=== PATIENT | female | born 1980 | race Caucasian/White ===

== ENCOUNTER → 2017-10-14 21:04 | Observation (INO) ==
[2017-10-14 18:29] LABS: Bilirubin,Urine Negative (Negative); Blood,Urine Trace (Negative); Color,Urine Yellow (Yellow); Glucose,Urine (UA) Normal (Normal); Ketones,Urine Negative (Negative); Leukocyte Esterase,Urine Negative (Negative); Nitrite,Urine Negative (Negative); Protein,Urine Negative (Neg-Trace); Specific Gravity,Urine 1.011 (1.010-1.025); Urobilinogen,Urine Normal (Normal)
[2017-10-14 18:31] LABS: Bacteria,Urine None Seen per hpf (None-Few); Hyaline Casts,Urine None Seen per lpf (None-Few); RBC,Urine 0-3 per hpf (0-3); Squamous Epithelial Cell,Urine Moderate per lpf (None-Few); WBC,Urine 0-3 per hpf (0-3)
[2017-10-14 18:33] LABS: Clarity,Urine Hazy (Clear)
[2017-10-14 18:38] LABS: Basophils % 0.4 %; Eosinophils # 0.1 K/mcL (0.0-0.6); Hematocrit 33.6 % (35.3-44.9); Hemoglobin 12.1 g/dL (11.5-15.4); Immature Granulocytes % 0.3 % (0-4); Lymphocytes # 1.7 K/mcL (0.6-4.6); Lymphocytes % 24.6 %; Mean Corpuscular Hemoglobin 33.2 pg (28.0-33.3); Mean Corpuscular Volume 92.3 fL (83.0-100.0); Mean Platelet Volume 10.5 fL (9.4-12.4); Monocytes # 0.6 K/mcL (0.0-1.3); Neutrophils # 4.5 K/mcL (1.6-8.9); Platelet Count 150 K/mcL (140-400); Red Blood Count 3.64 M/mcL (3.82-4.97); Red Cell Distribution Width 12.9 % (11.5-14.5); Segmented Neutrophils % 65.7 %
[2017-10-14 18:41] LABS: Amphetamine Screen,Urine Negative ng/mL (Cutoff=1000); Barbiturate Screen,Urine Negative ng/mL (Cutoff=200); Benzodiazepines Screen,Urine Negative ng/mL (Cutoff=200); Cannabinoid Screen,Urine Negative ng/mL (Cutoff = 50); Cocaine Screen,Urine Negative ng/mL (Cutoff= 300); Opiate Screen,Urine Negative ng/mL (Cutoff=300); Phencyclidine Screen,Urine Negative ng/mL (Cutoff=25); Protein/Creatinine Ratio,Urine 0.25 mg/mg (0.00-0.20)
[2017-10-14 18:50] LABS: Alanine Aminotransferase 17 Units/L (7-52); Aspartate Amino Transferase 19 Units/L (13-39); BUN/Creatinine Ratio 17 (6-26); Blood Urea Nitrogen 11 mg/dL (6-20); Lactate Dehydrogenase 146 Units/L (140-271); Uric Acid 5.5 mg/dL (2.3-7.6); eGFR For African Americans > 60 (> 60); eGFR For Non-African Americans > 60 (> 60)
--- NOTE | 2017-10-14 20:51 | Discharge Summary ---
Date of Encounter: 10/14/17 Time of Encounter: 20:51 - Discharge Diagnosis (1) 37 weeks gestation of Priority: Primary Status: Acute Comments: admitted for observation (2) Elevated blood pressure affecting in third trimester, antepartum Priority: Secondary Status: Acute Comments: PIH labs WNL Serial BPs monitored for [address] Thibodeaux aware of BPs and labs follow up in 3 days for NST and BP check (3) NST (non-stress test) reactive on surveillance Priority: Secondary Status: Acute Comments: 125 bpm moderate amount of variability +15x15 accels no decels noted. - Discharge Medications Home Medications: Vit #108/Iron/FA [ One Tablet] 1 each PO DAILY 10/14/17 [ History] Allergies/Adverse Reactions: 3 Allergy/AdvReac Type Severity Reaction Status Date / Time No Known Allergies Allergy Verified 10/14/17 17:42 Data Procedures and tests throughout hospitalization: Laboratory Tests 10/14/17 10/14/17 10/14/17 18:05 18:05 18:05 WBC 6.8 RBC 3.64 L Hgb 12.1 Hct 33.6 L MCV 92.3 MCH 33.2 MCHC 36.0 H RDW 12.9 Plt Count 150 MPV 10.5 Immature Gran % 0.3 Seg Neutrophils % 65.7 Lymphocytes % 24.6 Monocytes % 8.0 Eosinophils % 1.0 Basophils % 0.4 Neutrophils # 4.5 Lymphocytes # 1.7 Monocytes # 0.6 Eosinophils # 0.1 Basophils # 0.0 BUN Creatinine Est GFR ( Amer) Est GFR (Non-Af Amer) BUN/Creatinine Ratio Uric Acid AST ALT Lactate Dehydrogenase Urine Color Yellow Urine Clarity Hazy A Urine pH 6.0 Ur Specific [place] 1.011 Urine Protein Negative Urine Glucose (UA) Normal Urine Ketones Negative Urine Blood Trace H Urine Nitrite Negative Urine Bilirubin Negative Urine Urobilinogen Normal Ur Leukocyte Esterase Negative Urine Microscopic RBC 0-3 Urine Microscopic WBC 0-3 Ur Squamous Epith Cells Moderate H Urine Bacteria None Seen Hyaline Casts None Seen Ur Culture Indicated? NO Urine Creatinine Protein/Creatinin Ratio Urine Total Protein Urine Opiates Screen Negative Ur Barbiturates Screen Negative Ur Phencyclidine Scrn Negative Ur Amphetamines Screen Negative U Benzodiazepines Scrn Negative Urine Cocaine Screen Negative U Marijuana (THC) Screen Negative 05/22/18 05/22/18 18:05 18:05 WBC RBC Hgb Hct MCV MCH MCHC RDW Plt Count MPV Immature Gran % Seg Neutrophils % Lymphocytes % Monocytes % Eosinophils % Basophils % Neutrophils # Lymphocytes # Monocytes # Eosinophils # Basophils # BUN 11 Creatinine 0.63 Est GFR ( Amer) > 60 Est GFR (Non-Af Amer) > 60 BUN/Creatinine Ratio 17 Uric Acid 5.5 AST 19 ALT 17 Lactate Dehydrogenase 146 Urine Color Urine Clarity Urine pH Ur Specific [place] Urine Protein Urine Glucose (UA) Urine Ketones Urine Blood Urine Nitrite Urine Bilirubin Urine Urobilinogen Ur Leukocyte Esterase Urine Microscopic RBC Urine Microscopic WBC Ur Squamous Epith Cells Urine Bacteria Hyaline Casts Ur Culture Indicated? Urine Creatinine 20 Protein/Creatinin Ratio 0.25 H Urine Total Protein 5 Urine Opiates Screen Ur Barbiturates Screen Ur Phencyclidine Scrn Ur Amphetamines Screen U Benzodiazepines Scrn Urine Cocaine Screen U Marijuana (THC) Screen Labs on day of discharge: Labs from last 24 hours 10/14/17 10/14/17 10/14/17 18:05 18:05 18:05 WBC 6.8 RBC 3.64 L Hgb 12.1 Hct 33.6 L MCV 92.3 MCH 33.2 MCHC 36.0 H RDW 12.9 Plt Count 150 MPV 10.5 Immature Gran % 0.3 Seg Neutrophils % 65.7 Lymphocytes % 24.6 Monocytes % 8.0 Eosinophils % 1.0 Basophils % 0.4 Neutrophils # 4.5 Lymphocytes # 1.7 Monocytes # 0.6 Eosinophils # 0.1 Basophils # 0.0 BUN 11 Creatinine 0.63 Est GFR ( Amer) > 60 Est GFR (Non-Af Amer) > 60 BUN/Creatinine Ratio 17 Uric Acid 5.5 AST 19 ALT 17 Lactate Dehydrogenase 146 Urine Color Urine Clarity Urine pH Ur Specific [place] Urine Protein Urine Glucose (UA) Urine Ketones Urine Blood Urine Nitrite Urine Bilirubin Urine Urobilinogen Ur Leukocyte Esterase Urine Microscopic RBC Urine Microscopic WBC Ur Squamous Epith Cells Urine Bacteria Hyaline Casts Ur Culture Indicated? Urine Creatinine 20 Protein/Creatinin Ratio 0.25 H Urine Total Protein 5 Urine Opiates Screen Ur Barbiturates Screen Ur Phencyclidine Scrn Ur Amphetamines Screen U Benzodiazepines Scrn Urine Cocaine Screen U Marijuana (THC) Screen 10/14/17 10/14/17 18:05 18:05 WBC RBC Hgb Hct MCV MCH MCHC RDW Plt Count MPV Immature Gran % Seg Neutrophils % Lymphocytes % Monocytes % Eosinophils % Basophils % Neutrophils # Lymphocytes # Monocytes # Eosinophils # Basophils # BUN Creatinine Est GFR ( Amer) Est GFR (Non-Af Amer) BUN/Creatinine Ratio Uric Acid AST ALT Lactate Dehydrogenase Urine Color Yellow Urine Clarity Hazy A Urine pH 6.0 Ur Specific [place] 1.011 Urine Protein Negative Urine Glucose (UA) Normal Urine Ketones Negative Urine Blood Trace H Urine Nitrite Negative Urine Bilirubin Negative Urine Urobilinogen Normal Ur Leukocyte Esterase Negative Urine Microscopic RBC 0-3 Urine Microscopic WBC 0-3 Ur Squamous Epith Cells Moderate H Urine Bacteria None Seen Hyaline Casts None Seen Ur Culture Indicated? NO Urine Creatinine Protein/Creatinin Ratio Urine Total Protein Urine Opiates Screen Negative Ur Barbiturates Screen Negative Ur Phencyclidine Scrn Negative Ur Amphetamines Screen Negative U Benzodiazepines Scrn Negative Urine Cocaine Screen Negative U Marijuana (THC) Screen Negative Date of admission: 10/14/17 17:34 Discharging clinician: Johnna Houston Anticipated date of discharge: 10/14/17 - Patient Status Disposition: Home, Self-Care Condition: Good Functional capacity at discharge: independent ambulation - Discharge Instructions Follow Up With: Dre Thibodeaux MD [Partnered Physician] - - Diet and Activity Activity: increase activity as tolerated Diet: regular diet 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 Patient denies headache, visual disturbances, epigastric pain, contractions, LOF or VB. Patient reports +FM. Time Attestation: Total time spent providing and/or coordinating discharge services: Time Spent: Less than 30 minutes Exam - Constitutional General appearance IM: A&O X 3, pleasant, answers questions appropriately - Respiratory Respiratory exam: Present: CTAB - Cardiovascular Cardiovascular exam IM: Present: RRR, +S1, +S2 - GI/Abdominal GI/Abdominal exam IM: normal bowel sounds - Extremities Exam Extremities exam IM: Present: full ROM, normal capillary refill, pedal edema (1+ ) - Neurological Exam Neurological exam: oriented X3, reflexes normal - Other Additional findings: 125 bpm moderate variability +15x15 accels no decels noted. Cat. 1 tracing irregular contractions noted. - VTE Reasons for not Prescribing Prophylaxis: Treatment not Indicated - Low risk for VTE
== END | disposition home or self-care (01) ==
LOC: 1NENULAB
PROVIDERS: ADMIT Student in an Organized Health Care Education/Training Program; ATTEND Student in an Organized Health Care Education/Training Program

== ENCOUNTER 2017-10-17 11:34 | Inpatient (IN) ==
[2017-10-17] MEDS ORDERED: Naloxone 0.4 MG/ML INJ IVP PRN (11:53)
[2017-10-17] MEDS ORDERED: Ondansetron 4 MG/2 ML VIAL IVP PRN (11:53)
[2017-10-17] MEDS ORDERED: Famotidine 20 MG/2 ML VIAL IVP PRN (11:53)
[2017-10-17] MEDS ORDERED: *HR* Nalbuphine 10 MG/ML AMPUL IVP PRN (11:53)
[2017-10-17] MEDS ORDERED: Ringers Solution, Lactated 1,000 ML IVC SCH (12:00)
--- NOTE | 2017-10-17 12:06 | OB/GYN History & Physical ---
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 Muller is a 37 year old female at 37w6d presents to labor and delivery from OB office for IOL for PIH. Patient was seen in office for NST and BP check. BP was 142/90. Patient had elevated BPs earlier in the week as well. Due to BPs Dr. Thibodeaux sent patient for IOL. Patient reports +FM, denies contractions , headache or epigastric pain. Patient does report some visual disturbances. Blood type: A+ Rubella:Immune Hep B: Nonreactive GBS: Negative Past Med Surg Social Fam HX - Past Medical History Source: patient Medical history: no medical history Psychiatric history: no psych history - Past Surgical History Surgical History: other (wisdom teeth) - Social History Smoking Status: Never smoker Smokeless Tobacco Status: No Alcohol use: none Drug use: none Occupational status: employed Current living situation: Home - Independent Activity Level: Independent ambulation Recent Out of Country Travel Within the Last 8 Weeks: No Exposure or Possible Exposure to Illness During Travel: No - Family History Mother Living Status: Still Living Hx Family Cardiac Disorders: Yes (HTN) Obstetrical History - Pregnancies : 3 Para: 2 Term: 2 : 0 Ab's: 0 Livin Medications and Allergies Vit #108/Iron/FA [ One Tablet] 1 each PO DAILY 10/14/17 [ History] 3 Allergy/AdvReac Type Severity Reaction Status Date / Time No Known Allergies Allergy Verified 10/14/17 17:42 Review of System OB - Constitutional Constitutional ROS IM: no fever(s), no headache(s) - Cardiovascular Cardiovascular: no chest pain, no palpitations, no rapid heart rate, no syncope - Respiratory Respiratory: no cough - Gastrointestinal Gastrointestinal: no abdominal pain, no diarrhea, no heartburn, no nausea, no vomiting - Genitourinary Genitourinary: no abnormal vaginal bleeding, no dysuria, no flank pain, no urinary urgency, no vaginal discharge, no vaginal odor, no vaginal pruritis Exam - Constitutional Constitutional: well developed, well nourished, no acute distress, average body habitus - HEENT HEENT: Normocephaly, Mucus Membranes Moist - Neck Neck exam: full ROM, supple - Lungs Respiratory exam: CTAB - Cardiovascular Cardiovascular exam: RRR, +S1, +S2 - Abdomen Abdomen: Present: bowel sounds normal, gravid, non tender - Extremities Extremities exam: full ROM, normal capillary refill, pedal edema (1+ bilateral) Deep Tendon Reflex Grade: 2+ Normal - Cervix Dilation: 4 (per Dr. Thibodeaux in office) Effacement: 80 Station: -1 - Uterus Uterus exam: Present: normal size, normal contour - Comments Comments: FHR 135 bpm moderate variability +15x15 accels no decels noted. Cat. 1 tracing. No contractions Results All other labs normal. - VTE Reasons for not Prescribing Prophylaxis: Treatment not Indicated - Low risk for VTE
[2017-10-17] MEDS ORDERED: miSOPROStol 100 MCG TABLET PO ONE (12:30)
[2017-10-17 13:14] LABS: Basophils % 0.5 %; Eosinophils # 0.1 K/mcL (0.0-0.6); Eosinophils % 1.3 %; Hematocrit 33.4 % (35.3-44.9); Hemoglobin 12.2 g/dL (11.5-15.4); Immature Granulocytes % 0.5 % (0-4); Lymphocytes # 1.2 K/mcL (0.6-4.6); Lymphocytes % 19.5 %; Mean Corpuscular HGB Conc 36.5 g/dL (31.6-35.5); Mean Corpuscular Hemoglobin 33.6 pg (28.0-33.3); Mean Platelet Volume 10.7 fL (9.4-12.4); Monocytes # 0.4 K/mcL (0.0-1.3); Monocytes % 6.3 %; Neutrophils # 4.5 K/mcL (1.6-8.9); Platelet Count 137 K/mcL (140-400); Red Blood Count 3.63 M/mcL (3.82-4.97); Red Cell Distribution Width 12.8 % (11.5-14.5); Segmented Neutrophils % 71.9 %
[2017-10-17 13:21] LABS: Amphetamine Screen,Urine Negative ng/mL (Cutoff=1000); Barbiturate Screen,Urine Negative ng/mL (Cutoff=200); Benzodiazepines Screen,Urine Negative ng/mL (Cutoff=200); Cannabinoid Screen,Urine Negative ng/mL (Cutoff = 50); Cocaine Screen,Urine Negative ng/mL (Cutoff= 300); Creatinine,Urine 43 mg/dL; Opiate Screen,Urine Negative ng/mL (Cutoff=300); Phencyclidine Screen,Urine Negative ng/mL (Cutoff=25); Protein/Creatinine Ratio,Urine 0.23 mg/mg (0.00-0.20)
[2017-10-17 13:28] LABS: Alanine Aminotransferase 15 Units/L (7-52); Aspartate Amino Transferase 18 Units/L (13-39); BUN/Creatinine Ratio 17 (6-26); Blood Urea Nitrogen 11 mg/dL (6-20); Lactate Dehydrogenase 151 Units/L (140-271); Uric Acid 5.5 mg/dL (2.3-7.6); eGFR For African Americans > 60 (> 60); eGFR For Non-African Americans > 60 (> 60)
--- NOTE | 2017-10-17 14:10 | Anesthesia Evaluation PreOp ---
Date of Encounter: 10/17/17 Time of Encounter: 14:07 - Past History Planned Operation: karlo Cardiac History: HTN (PIH) Pulmonary History: Denies Any Significant HX ASIC ENGINEER History: Denies Any Significant HX Other Medical History: GERD Anesthesia History: No Prior Anesthetic Complications, Past Anesthesia (karlo x2) : Yes Test: Positive Alcohol Use: none Drug use: none Medications and Allergies Vit #108/Iron/FA [ One Tablet] 1 each PO DAILY 10/14/17 [ History] 3 Allergy/AdvReac Type Severity Reaction Status Date / Time No Known Allergies Allergy Verified 10/14/17 17:42 - Meds/Allergy Pre-op Review Medications Reviewed: Yes Allergies Reviewed: Yes Beta Blockers on Current Med List: No Anesthesia Results - Labs 10/17/17 11:55 10/17/17 11:55 Anesthesia Exam 141/100 76 16 fht 124 Height: 5'5" Weight: 88 k NPO (# of Hours): 3 Pain Scale: 3 Pain Scale Used: Numeric (1 - 10) - HEENT Pupil (Motor): Pupils equal Mallampati: II Teeth: Normal Oral Opening: Greater than 3 - ASIC ENGINEER LOC: Oriented ASIC ENGINEER Motor: Normal RUE, Normal LUE, Normal RLE, Normal LLE, Normal Face ASIC ENGINEER Sensory: Normal: RUE, LUE, RLE, LLE, Face - Cardiac Rhythm: Regular Murmur: None - Pulmonary Breath Sounds: bilateral Clear Respiratory Effort: Symmetrical Anesthesia Assess/Plan ASA Score: 2 Modified Brittany Scale for Level of Consciousness: Cooperative, oriented, and tranquil Anesthetic Plan: Regional Autologous Blood: No Monitoring Plan: Standard Monitors Recovery Plan: Other (risks discussed, questions answered, consented)
[2017-10-17] MEDS ORDERED: *HR* FentaNYL (PF) 100 MCG/2 ML VIAL EP ONE (14:11)
[2017-10-17] MEDS ORDERED: *HR* Ropivacaine/PF 0.2% 20 ML VIAL EP ONE (14:11)
[2017-10-17] MEDS ORDERED: Epidural Premix (fent/bupiv) 110 ML EP SCH (14:15)
--- NOTE | 2017-10-17 15:29 | OB Labor Progress Note ---
Date of Encounter: 10/17/17 Time of Encounter: 15:27 Labor Progress Note - Subjective Subjective: Patient doing well. Patient denies any pain at this time. Discussed POC with patient. Patient denies any questions or concerns. - Cervix Cervix: 5/70/-1 - Heart Tones Heart Tones: 135 bpm moderate variability + 15x15 accels no decels noted. CAt. 1 tracing. - Paw Paw Paw Paw: 3-5 min apart - Interventions Interventions: SVE, AROM moderate amount of clear fluid. Patient tolerated well. - Plan Plan: Continue labor management anticipate
[2017-10-17] MEDS ORDERED: Epidural Premix (fent/bupiv) 110 ML EP ONE (16:30)
--- NOTE | 2017-10-17 16:57 | Anesthesia Procedures ---
Date of Encounter: 10/17/17 Time of Encounter: 16:54 Procedures: Anesthesia - Epidural/Spinal OB Eval: Gestational age: 37.6 OB Eval: : 3 OB Eval: Hx Para: 2 OB Eval: Dilated at (cm): 5 OB Eval: Contractions: Non-stressed pattern Consent Obtained: Yes Supplemental Oxygen: None/Room Air Site Prep: Aseptic Technique Patient position: upright Local Anesthetic: Lidocaine 1% Amount of Local Anesthetic used: 3 Touhy Needle Gauge: 18 Touhy Needle Depth (cm): 5 Catheter Depth at Skin (cm): 15 Test Dose (1.5% Lido + Epi): Volume given (mls): 3 Test Dose Result: Negative Loading Dose: Fentanyl (mcg): 100 Loading Dose: Other: rop 0.2% 10cc Loading Dose Administered: Thru Touhy Needle Infusion Med: 0.125% Bupivacaine w/ 2 mcg/ml Fentanyl (pcea) Infusion Rate (mls/hr): 15 (pcea 5 cc q 30") Catheter Secured in Place: Tegaderm Interspace Used: L2-L3 Loss of Resistance (KARISSA): Yes Blood: No CSF: No Paresthesia: No Procedure: aseptic, tolerated well, VSS, effective Vitals + FHT's: 143/87 88 16 fht 133
[2017-10-17] MEDS ORDERED: Oxytocin 20 units/ LR 1000 mL 20 UNIT/1,000 ML BAG IVC ONE ×2 (17:25→21:54)
[2017-10-17] MEDS ORDERED: Lidocaine -MPF 1% 2 ML VIAL ID ONE (19:31)
--- NOTE | 2017-10-17 20:43 | OB/GYN Procedure Note ---
Delivery - Delivery Date: 10/17/17 Provider: Johnna Houston Intrapartum events: none Delivery induction: AROM, misoprostol Delivery monitor: external FHT, external uterine Anesthesia: epidural Quantitated Blood Loss: 200 - Infant (s) Infant A Infant Delivery Date: 10/17/17 Infant Delivery Time: 20:11 Presentation: vertex Position: CHRISTOS Route of delivery: Gender: Male Viability: Viable Pounds: 7 Ounces: 0 Weight Gram: 3185 kg at 1 minute: 8 at 5 mins: 9 Shoulder Dystocia: not encountered Placenta: spontaneous, uterine exploration Cord: 3 umbilical vessels - Repair Episiotomy: none Laceration Description: Perineal - 1st Degree (repaired with 3-0 vicryl ) - Complications Delivery complications: none - Disposition Mom disposition: stable in LDR [place] disposition: stable in LDR - Comments Comments: Called to LDR patient complete and feeling pressure. Patient placed in foot plates and prepped for delivery. Under maternal effort patient spontaneously delivered a viable male infant over a 1st degree laceration. No nuchal cord, shoulder dystocia or meconium was encountered. was placed on maternal abdomen. Cord was clamped and cut after pulsations ceased. A 1st degree laceration was repaired with 3-0 vicryl. Placenta delivered spontaneously and intact. Pericare provided. All counts correct. Both Mother and infant stable in LDR for 2 hour recovery.
[2017-10-17] MEDS ORDERED: *HR* HYDROcodone/Acet 5/325 mg TABLET PO PRN (22:08)
[2017-10-17] MEDS ORDERED: Acetaminophen 325 MG TABLET PO PRN (22:08)
[2017-10-17] MEDS ORDERED: Lanolin 7 G OINT...G. TP PRN (22:08)
[2017-10-17] MEDS ORDERED: Benzocaine/Menthol 56 GM AEROSOL SPRAY TP PRN (22:08)
[2017-10-17] MEDS ORDERED: Oxytocin 20 units/ LR 1000 mL 20 UNIT/1,000 ML BAG IVC SCH (22:08)
[2017-10-18 07:50] LABS: Alanine Aminotransferase 13 Units/L (7-52); Aspartate Amino Transferase 22 Units/L (13-39); BUN/Creatinine Ratio 15 (6-26); Blood Urea Nitrogen 8 mg/dL (6-20); Lactate Dehydrogenase 171 Units/L (140-271); Uric Acid 5.6 mg/dL (2.3-7.6); eGFR For African Americans > 60 (> 60); eGFR For Non-African Americans > 60 (> 60)
[2017-10-18 07:55] LABS: Basophils % 0.4 %; Eosinophils # 0.1 K/mcL (0.0-0.6); Eosinophils % 1.1 %; Hematocrit 34.6 % (35.3-44.9); Hemoglobin 12.1 g/dL (11.5-15.4); Immature Granulocytes % 0.2 % (0-4); Lymphocytes # 1.7 K/mcL (0.6-4.6); Lymphocytes % 19.8 %; Mean Corpuscular Hemoglobin 32.5 pg (28.0-33.3); Mean Platelet Volume 10.6 fL (9.4-12.4); Monocytes # 0.6 K/mcL (0.0-1.3); Monocytes % 6.6 %; Platelet Count 130 K/mcL (140-400); Red Blood Count 3.72 M/mcL (3.82-4.97); Red Cell Distribution Width 12.9 % (11.5-14.5); Segmented Neutrophils % 71.9 %
[2017-10-18] MEDS: Prenatal Vit/FA 1 EACH TABLET PO SCH (08:29)
--- NOTE | 2017-10-18 10:56 | OB/GYN Progress Note ---
Date of Encounter: 10/18/17 Time of Encounter: 10:53 - Assessment and Plan (1) Vaginal delivery Current Visit: Yes Status: Acute Continue routine care Ice to perineum when necessary Dermoplast to perineum when necessary consult Anticipate discharge home tomorrow (2) Breast feeding status of mother Current Visit: Yes Status: Acute when necessary Subjective - Subjective Principal diagnosis: s/p Interval history: Feeling well. Out of bed without dizziness. Positive perineal discomfort- using ice pack. Recommended to add-on dermoplast spray as well as witch phill pads. Cramping minimal, using ibuprofen. Breast-feeding every 2-3 hours. Some nipple soreness. Voiding without difficulty. Passing flatus, no BM yet. Tolerating regular diet. Patient reports: appetite normal, voiding normally, pain well controlled, ambulating normally : doing well, nursing well Objective - Latest Vital Signs Latest vital signs: Vital Signs Temp Pulse Resp BP Pulse Ox 10/18/17 08:38 98.3 F 93 16 121/80 10/18/17 01:17 98.5 F 92 16 123/82 97 10/18/17 00:10 97.8 F 86 16 137/85 99 10/17/17 23:10 98.2 F 87 16 140/89 98 Intake and Output 10/17/17 10/18/17 10/18/17 23:59 07:59 15:59 Intake Total 0 / 0 1000 / 1000 Output Total 1500 / 1500 2500 / 2500 750 / 750 Balance -1500 / -1500 -1500 / -1500 -750 / -750 Intake: Oral 0 / 0 1000 / 1000 Output: Urine 500 / 500 2500 / 2500 750 / 750 Catheter 1000 / 1000 Other: Weight 87.4 kg Patient Weight 10/18/17 23:59 Weight 87.4 kg - Exam Lungs: bilateral: normal Chest: Normal S1, Normal S2 Extremities: Present: normal, edema Abdomen: Present: normal appearance, soft Uterus: Present: normal, firm Uterus Position: 1 Finger Below Umbilicus, Midline Comments: Breasts: Nipples intact without erythema; breasts soft, nontender. - Labs Labs: Laboratory Results - last 24 hr 10/17/17 10/17/17 10/17/17 11:55 11:55 12:35 WBC 6.2 RBC 3.63 L Hgb 12.2 Hct 33.4 L MCV 92.0 MCH 33.6 H MCHC 36.5 H RDW 12.8 Plt Count 137 L MPV 10.7 Immature Gran % 0.5 Seg Neutrophils % 71.9 Lymphocytes % 19.5 Monocytes % 6.3 Eosinophils % 1.3 Basophils % 0.5 Neutrophils # 4.5 Lymphocytes # 1.2 Monocytes # 0.4 Eosinophils # 0.1 Basophils # 0.0 BUN 11 Creatinine 0.64 Est GFR ( Amer) > 60 Est GFR (Non-Af Amer) > 60 BUN/Creatinine Ratio 17 Uric Acid 5.5 AST 18 ALT 15 Lactate Dehydrogenase 151 Urine Creatinine Protein/Creatinin Ratio Urine Total Protein Urine Opiates Screen Ur Barbiturates Screen Ur Phencyclidine Scrn Ur Amphetamines Screen U Benzodiazepines Scrn Urine Cocaine Screen U Marijuana (THC) Screen Blood Type A POSITIVE Antibody Screen NEGATIVE 10/17/17 10/18/17 10/18/17 12:55 07:00 07:00 WBC 8.4 RBC 3.72 L Hgb 12.1 Hct 34.6 L MCV 93.0 MCH 32.5 MCHC 35.0 RDW 12.9 Plt Count 130 L MPV 10.6 Immature Gran % 0.2 Seg Neutrophils % 71.9 Lymphocytes % 19.8 Monocytes % 6.6 Eosinophils % 1.1 Basophils % 0.4 Neutrophils # 6.0 Lymphocytes # 1.7 Monocytes # 0.6 Eosinophils # 0.1 Basophils # 0.0 BUN 8 Creatinine 0.54 L Est GFR ( Amer) > 60 Est GFR (Non-Af Amer) > 60 BUN/Creatinine Ratio 15 Uric Acid 5.6 AST 22 ALT 13 Lactate Dehydrogenase 171 Urine Creatinine 43 Protein/Creatinin Ratio 0.23 H Urine Total Protein 10 Urine Opiates Screen Negative Ur Barbiturates Screen Negative Ur Phencyclidine Scrn Negative Ur Amphetamines Screen Negative U Benzodiazepines Scrn Negative Urine Cocaine Screen Negative U Marijuana (THC) Screen Negative Blood Type Antibody Screen
[2017-10-18] MEDS: Ibuprofen 600 MG TABLET PO PRN ×2 (11:04→16:44)
[2017-10-19] MEDS: Prenatal Vit/FA 1 EACH TABLET PO SCH (07:36)
[2017-10-19 09:03] VITALS: BP 137/85
[2017-10-19] MEDS: Ibuprofen 600 MG TABLET PO PRN (10:09)
--- NOTE | 2017-10-19 11:02 | Discharge Summary ---
Date of Encounter: 10/19/17 Time of Encounter: 10:59 - Discharge Diagnosis (1) Vaginal delivery Priority: Primary Status: Acute Comments: Pain well controlled with by mouth pain meds Tolerating regular diet Voiding independently Passing flatus, but no BM yet Ambulating independently Lochia light Discharge home today (2) Breast feeding status of mother Priority: Secondary Status: Acute Comments: when necessary - Discharge Medications Prescriptions: Ibuprofen [Motrin] 600 mg PO Q6HR PRN #30 tablet PRN Reason: Cramping Docusate [Colace] 100 mg PO BID #30 capsule Home Medications: Vit #108/Iron/FA [ One Tablet] 1 each PO DAILY 10/14/17 [ History] Benzocaine/Menthol [place] [Dermoplast [place]] 1 appl TP QID PRN aerosol 10/19/17 [Rx] Docusate [Colace] 100 mg PO BID #30 capsule 10/19/17 [Rx] Hydrocortisone 1% CREAM [Cortaid] 1 appl TP BID PRN bottle 10/19/17 [Rx] Ibuprofen [Motrin] 600 mg PO Q6HR PRN #30 tablet 10/19/17 [Rx] Lanolin [Lansinoh] 1 appl TP TID PRN oint...g. 10/19/17 [Rx] Allergies/Adverse Reactions: 3 Allergy/AdvReac Type Severity Reaction Status Date / Time No Known Allergies Allergy Verified 10/14/17 17:42 Data Procedures and tests throughout hospitalization: Laboratory Tests 10/17/17 10/17/17 10/17/17 11:55 11:55 12:35 WBC 6.2 RBC 3.63 L Hgb 12.2 Hct 33.4 L MCV 92.0 MCH 33.6 H MCHC 36.5 H RDW 12.8 Plt Count 137 L MPV 10.7 Immature Gran % 0.5 Seg Neutrophils % 71.9 Lymphocytes % 19.5 Monocytes % 6.3 Eosinophils % 1.3 Basophils % 0.5 Neutrophils # 4.5 Lymphocytes # 1.2 Monocytes # 0.4 Eosinophils # 0.1 Basophils # 0.0 BUN 11 Creatinine 0.64 Est GFR ( Amer) > 60 Est GFR (Non-Af Amer) > 60 BUN/Creatinine Ratio 17 Uric Acid 5.5 AST 18 ALT 15 Lactate Dehydrogenase 151 Urine Creatinine Protein/Creatinin Ratio Urine Total Protein Urine Opiates Screen Ur Barbiturates Screen Ur Phencyclidine Scrn Ur Amphetamines Screen U Benzodiazepines Scrn Urine Cocaine Screen U Marijuana (THC) Screen Blood Type A POSITIVE Antibody Screen NEGATIVE 10/17/17 10/18/17 10/18/17 12:55 07:00 07:00 WBC 8.4 RBC 3.72 L Hgb 12.1 Hct 34.6 L MCV 93.0 MCH 32.5 MCHC 35.0 RDW 12.9 Plt Count 130 L MPV 10.6 Immature Gran % 0.2 Seg Neutrophils % 71.9 Lymphocytes % 19.8 Monocytes % 6.6 Eosinophils % 1.1 Basophils % 0.4 Neutrophils # 6.0 Lymphocytes # 1.7 Monocytes # 0.6 Eosinophils # 0.1 Basophils # 0.0 BUN 8 Creatinine 0.54 L Est GFR ( Amer) > 60 Est GFR (Non-Af Amer) > 60 BUN/Creatinine Ratio 15 Uric Acid 5.6 AST 22 ALT 13 Lactate Dehydrogenase 171 Urine Creatinine 43 Protein/Creatinin Ratio 0.23 H Urine Total Protein 10 Urine Opiates Screen Negative Ur Barbiturates Screen Negative Ur Phencyclidine Scrn Negative Ur Amphetamines Screen Negative U Benzodiazepines Scrn Negative Urine Cocaine Screen Negative U Marijuana (THC) Screen Negative Blood Type Antibody Screen Date of admission: 10/17/17 11:34 Primary care physician: Didi Salinas Consults: 10/17/17 22:08 Consult to Fixture Relamper [CONS] Routine Comment: Vaginal delivery, consult needed Discharging clinician: Dari Gilmore Anticipated date of discharge: 10/19/17 - Patient Status Disposition: Home, Self-Care Condition: Good Functional capacity at discharge: independent ambulation Overall status at discharge: patient is progressing back to baseline - Discharge Instructions Follow Up With: Didi Salinas MD [Primary Care Provider] - Ruby Fernandez DO [Partnered Physician] - - Diet and Activity Activity: increase activity as tolerated Diet: regular diet Hospital Course Reason for admission: IUP at term Delivery: Episiotomy: none Laceration: none Other procedures: none complications: none Discharge diagnosis: IUP at term delivered [place] baby: male Time Attestation: Total time spent providing and/or coordinating discharge services: Time Spent: Less than 30 minutes Exam - Constitutional Vitals: Temp Pulse Resp BP Pulse Ox 97.9 F 96 16 137/85 97 10/19/17 08:45 10/19/17 08:45 10/19/17 08:45 10/19/17 08:45 10/19/17 08:45 General appearance IM: A&O X 3 - Respiratory Respiratory exam: Present: CTAB - Cardiovascular Cardiovascular exam IM: Present: RRR, +S1, +S2 - GI/Abdominal GI/Abdominal exam IM: normal bowel sounds, no peritoneal signs - Rectal Rectal exam: deferred - Uterine Tone: Firm Uterus Position: 1 Finger Below Umbilicus, Midline - Extremities Exam Extremities exam IM: Present: normal capillary refill, normal inspection, radial pulses palpable and symmetrical - Neurological Exam Neurological exam: alert, oriented X3 - Psychiatric Additional comments: Patient denies history of anxiety and depression. Signs and symptoms of depression discussed with her and she and her partner verbalize understanding of when to call for help.
== END 2017-10-19 11:30 | disposition home or self-care (01) | DRG 775 ==
LOC: 1NENULAB 11:34 → 1NENUOBS 23:23
PROVIDERS: ADMIT Student in an Organized Health Care Education/Training Program; ATTEND Student in an Organized Health Care Education/Training Program